=== PATIENT | female | born 1980 | race Caucasian/White ===

== ENCOUNTER → 2017-10-07 | Outpatient (CLI) | payer OTHER ==
[~2017-10-07] MED LIST: IBUP-1222 PO; LANS15CA PO; LEVO200T PO; LEVO50TA PO; METH5TAB6 PO; OMEG500C3 PO; PREN1TAB52 PO; iron
== END | disposition home or self-care (01) ==
LOC: CFH 08:46
PROVIDERS: ATTEND Nurse Practitioner
DX: Z12.31 Encounter for screening mammogram for malignant neoplasm of breast (principal)
CPT/HCPCS: 77063; 77067

== ENCOUNTER 2018-05-20 13:50 | Emergency (ER) | payer OTHER ==
[~2018-05-20] VITALS: Ht 175.3 cm; Wt 95.0 kg
[2018-05-20 14:33] LABS: BASOPHILS # (AUTO) 0.04 x10^3/uL (0-0.1); BASOPHILS % (AUTO) 1 % (0-1); EOSINOPHILS # (AUTO) 0.12 x10^3/uL (0-0.4); EOSINOPHILS % (AUTO) 1 % (1-7); LYMPHOCYTES # (AUTO) 2.27 x10^3/uL (1-3.4); LYMPHOCYTES % (AUTO) 26 % (22-44); MD NO; MEAN CORPUSCULAR HEMOGLOBIN 28.7 pg (27.0-34.8); MEAN CORPUSCULAR HGB CONC 33.8 g/dL (32.4-35.8); MEAN CORPUSCULAR VOLUME 84.9 fL (80-100); MEAN PLATELET VOLUME 6.7 fL (7.4-10.4); MONOCYTES # (AUTO) 0.37 x10^3/uL (0.2-0.8); MONOCYTES % (AUTO) 4 % (2-9); NEUTROPHILS # (AUTO) 5.83 x10^3/uL (1.8-6.8); NEUTROPHILS % (AUTO) 68 % (42-75); PLATELET COUNT 371 x10^3/uL (130-400); RED CELL DISTRIBUTION WIDTH 13.6 % (9.6-15.2)
[2018-05-20 14:43] LABS: ALBUMIN 3.8 g/dL (3.4-5.0); ANION GAP 5 mmol/L (5-15); CHLORIDE 108 mmol/L (98-107)
[2018-05-20 14:48] LABS: ALANINE AMINOTRANSFERASE 27 U/L (12-78); ALKALINE PHOSPHATASE 106 U/L (45-117); BILIRUBIN,TOTAL 0.3 mg/dL (0.2-1.0); CREATININE 0.81 mg/dL (0.55-1.02); TOTAL PROTEIN 7.8 g/dL (6.4-8.2); TROPONIN I < 0.015 ng/mL (0.000-0.045)
[2018-05-20] MEDS ORDERED: ESCI20TA10 PO (14:56)
[2018-05-20] MEDS ORDERED: LEVO200T PO (14:56)
[2018-05-20 15:23] VITALS: BP 138/87
== END 2018-05-20 15:30 | disposition home or self-care (01) ==
LOC: ED 14:15
DX: R07.89 Other chest pain (principal); K21.9 Gastro-esophageal reflux disease without esophagitis
CPT/HCPCS: 36415; 71045; 80053; 84484; 85025; 93005; 99285

== ENCOUNTER → 2018-07-06 | Outpatient (CLI) | payer OTHER ==
[~2018-07-06] MED LIST changes: +ESCI20TA10 PO
== END | disposition home or self-care (01) ==
LOC: CFH 08:57
PROVIDERS: ATTEND Physician Assistant Surgical
DX: M89.8X5 Other specified disorders of bone, thigh (principal)

== ENCOUNTER 2018-09-16 15:13 | Outpatient (CLI) | payer OTHER ==
[2018-09-16] MEDS ORDERED: LEVO175T2 PO (15:54)
[2018-09-16] MEDS ORDERED: ESCI10TA PO (15:54)
[2018-09-16] MEDS ORDERED: THRIVE VITAMINS PO (15:54)
== END 2018-09-16 23:59 | disposition home or self-care (01) ==
LOC: STAR 15:13
PROVIDERS: ATTEND Orthopaedic Surgery
DX: Z02.9 Encounter for administrative examinations, unspecified (principal)

== ENCOUNTER 2018-09-22 05:13 | Day surgery (SDC) | payer OTHER ==
[2018-09-16 15:47] VITALS: BP 127/90
[~2018-09-22] VITALS: Ht 175.3 cm; Wt 93.6 kg
[~2018-09-22 05:13] MED LIST changes: +ESCI10TA PO; +LEVO175T2 PO; +THRIVE VITAMINS PO
[2018-09-22] MEDS ORDERED: LACTATED RINGERS 1,000 ML IV SCH (06:04)
[2018-09-22 06:06] VITALS: BP 127/90
[2018-09-22 06:13] LABS: HCG UR SG 1.031 (1.003-1.030)
[2018-09-22] MEDS ORDERED: EPINEPHRINE TOPICAL SOLN 1 MG/ML, 30ML ONE (06:33)
[2018-09-22] MEDS ORDERED: MIDAZOLAM 1 MG/ML, 2ML ONE (06:36)
[2018-09-22] MEDS ORDERED: FENTANYL PF 250 MCG/5ML ONE (06:36)
[2018-09-22] MEDS ORDERED: GABAPENTIN 300 MG CAPSULE ONE (06:48)
[2018-09-22] MEDS ORDERED: SCOPOLAMINE PATCH, 1.5MG PATCH.TD72 TD ONE ×2 (06:48→07:00)
[2018-09-22] MEDS ORDERED: ACETAMINOPHEN 500 MG TABLET ONE (06:48)
[2018-09-22] MEDS ORDERED: CEFAZOLIN 1,000 MG ONE (07:00)
[2018-09-22] MEDS ORDERED: GLYCOPYRROLATE 0.2MG/1ML, 5ML ONE (07:00)
[2018-09-22] MEDS ORDERED: ONDANSETRON 2MG/ML, 2ML ONE (07:00)
[2018-09-22] MEDS ORDERED: DEXAMETHASONE 4 MG/ML, 1ML ONE (07:00)
[2018-09-22] MEDS ORDERED: ACETAMINOPHEN 500 MG TABLET PO ONE (07:00)
[2018-09-22] MEDS ORDERED: PROPOFOL 10 MG/ML, 20ML ONE (07:00)
[2018-09-22] MEDS ORDERED: GABAPENTIN 300 MG CAPSULE PO ONE (07:00)
[2018-09-22] MEDS ORDERED: SUCCINYLCHOLINE 20 MG/ML, 10ML ONE (07:00)
[2018-09-22] MEDS ORDERED: PHENYLEPHRINE 10 MG/ML ONE (07:00)
[2018-09-22] MEDS ORDERED: ROCURONIUM 10 MG/ML,10ML ONE (07:00)
[2018-09-22] MEDS ORDERED: hydrALAzine 20 MG/ML, 1ML IV PRN (08:00)
[2018-09-22] MEDS ORDERED: ALBUTEROL SULFATE 2.5 MG/3 ML NPPB PRN (08:00)
[2018-09-22] MEDS ORDERED: MEPERIDINE/PF 25MG/0.5ML IVPush PRN (08:00)
[2018-09-22] MEDS ORDERED: HYDROmorphone 1 MG/ML, 1ML IV PRN (08:00)
[2018-09-22] MEDS ORDERED: PROMETHAZINE 25 MG/ML, 1ML IV PRN (08:00)
[2018-09-22] MEDS ORDERED: KETOROLAC 30 MG/1 ML IV PRN (08:00)
[2018-09-22] MEDS ORDERED: ONDANSETRON 2MG/ML, 2ML IVPush PRN (08:00)
[2018-09-22] MEDS ORDERED: OXYcodone 5 MG/5 ML ORAL.SOL UDC PO PRN (08:00)
[2018-09-22] MEDS ORDERED: METOCLOPRAMIDE 5 MG/ML, 2ML IV PRN (08:00)
[2018-09-22] MEDS ORDERED: LABETALOL 5MG/ML, 20ML IV PRN (08:00)
[2018-09-22] MEDS ORDERED: ROPIvacaine/PF 0.5%, 30 ML ONE (08:13)
[2018-09-22] MEDS ORDERED: FENTANYL PF 100 MCG/2ML ONE (09:01)
[2018-09-22] MEDS ORDERED: KETOROLAC 30 MG/1 ML ONE (09:01)
[2018-09-22] MEDS ORDERED: OXYcodone 5 MG/5 ML ORAL.SOL UDC ONE (09:02)
[2018-09-22] MEDS: FENTANYL PF 100 MCG/2ML IV PRN ×2 (09:06→09:27)
== END 2018-09-22 12:30 | disposition home or self-care (01) ==
LOC: OUT 05:13
PROVIDERS: ATTEND Orthopaedic Surgery
DX: M24.151 Other articular cartilage disorders, right hip (principal); M25.851 Other specified joint disorders, right hip; M65.851 Other synovitis and tenosynovitis, right thigh; Z88.8 Allergy status to other drugs, medicaments and biological substances; K21.9 Gastro-esophageal reflux disease without esophagitis; J45.909 Unspecified asthma, uncomplicated
CPT/HCPCS: 29862; 73501; 76000; 81025; J0330; J0690; J1100; J1885; J2250; J2370; J2405; J2704; J2795; J3010; J3490; J7120